=== PATIENT | male | born 1985 | race Caucasian/White ===

== ENCOUNTER 2025-04-18 13:19 | Emergency (ER) | payer SELFPAY ==
[~2025-04-18] VITALS: Ht 175.3 cm; Wt 83.4 kg
--- NOTE | 2025-04-18 16:11 | DVH ---
CLINICAL INDICATION: LOW BACK PAIN TECHNIQUE: 3 radiographic views of the lumbar spine were obtained. COMPARISON: None FINDINGS/IMPRESSION: Levoscoliosis of the lumbar spine is noted. Without prior studies for comparison it can not be determined if this finding is positional. There are no compressed vertebra. There is no spondylolisthesis.
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
[2025-04-18] MEDS ORDERED: CYCL-837 PO (17:01)
[2025-04-18 17:16] VITALS: BP 123/86; PULSE 76; RESP 16; TEMP 98.3; O2SAT 97
== END 2025-04-18 17:24 | disposition home or self-care (01) ==
LOC: EEVIPCON 13:19 → ER 13:19
DX: M62.830 Muscle spasm of back (principal); Z88.1 Allergy status to other antibiotic agents; V89.2XXA Person injured in unspecified motor-vehicle accident, traffic, initial encounter; Y93.89 Activity, other specified; Y92.410 Unspecified street and highway as the place of occurrence of the external cause; Y99.8 Other external cause status
CPT/HCPCS: 72100